=== PATIENT | female | born 1995 | race Caucasian/White ===

== ENCOUNTER 2017-03-07 17:48 | Emergency (ER) | payer OTHER ==
[~2017-03-07] VITALS: Ht 160 cm; Wt 106.8 kg
[2017-03-07] MEDS ORDERED: MAALOX/HYOSCYAMINE/LIDOCAINE 45 ML BTL PO ONE (18:30)
[2017-03-07] MEDS ORDERED: MAALOX/HYOSCYAMINE/LIDOCAINE 45 ML BTL ONE (18:30)
[2017-03-07 18:58] LABS: HEMATOCRIT 37.5 % (34.6-47.8); HEMOGLOBIN 12.8 g/dL (11.7-16.4); WHITE BLOOD COUNT 7.4 x10^3/uL (3.4-10)
[2017-03-07 19:01] LABS: BLOOD UREA NITROGEN 13 mg/dL (7-18)
[2017-03-07 19:08] LABS: ASPARTATE AMINO TRANSFERASE 15 U/L (15-37)
[2017-03-07] MEDS ORDERED: PANTOPRAZOLE 20MG TABLET ONE (19:37)
[2017-03-07 19:50] VITALS: BP 133/76
[2017-03-07] MEDS ORDERED: PANTOPROZOLE 40MG TABLET PO SCH (20:00)
== END 2017-03-07 19:52 | disposition home or self-care (01) ==
LOC: ED 18:36
DX: R10.11 Right upper quadrant pain (principal); R10.13 Epigastric pain; R11.0 Nausea; Z90.49 Acquired absence of other specified parts of digestive tract
CPT/HCPCS: 36415; 80053; 83690; 84703; 85025; 99284